=== PATIENT | male | born 1985 | race Caucasian/White ===

== ENCOUNTER 2016-12-07 02:31 | Emergency (ER) | payer OTHER ==
[2016-12-07 02:44] VITALS: TEMP 98.2
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
[2016-12-07 03:14] VITALS: RESP 18; O2SAT 98
[2016-12-07 04:05] VITALS: BP 119/82; PULSE 90
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
== END 2016-12-07 04:10 | disposition home or self-care (01) ==
LOC: H.ER 02:31
DX: R42 Dizziness and giddiness (principal); V49.49XA Driver injured in collision with other motor vehicles in traffic accident, initial encounter

== ENCOUNTER 2017-05-18 23:22 | Emergency (ER) | payer OTHER ==
[2017-05-18 23:36] VITALS: RESP 16; TEMP 97.4; O2SAT 98
[2017-05-19] MEDS ORDERED: Sodium Chloride 0.9% 1,000 ML IV STA (00:35)
--- NOTE | 2017-05-19 01:01 | ED PDOC ---
HPI: Abdomen Time Seen by Provider: 05/19/17 00:26 Chief Complaint (Nursing): Abdominal Pain Chief Complaint (Provider): Abdominal Pain History Per: Patient History/Exam Limitations: no limitations Onset/Duration Of Symptoms: Hrs (x 3) Outside of [place] travel?: No Current Symptoms Are (Timing): Still Present Additional Complaint(s): 31 year old [place] male with a past medical history of gastritis presents to the ED complaining of abdominal pain, nausea and diarrhea, onset 3 hours ago. Patient reports developing acute non bloody, loose and watery diarrhea with nausea and mild sense of dizziness. He took Omeprazole with some relief. Currently still complains of nausea. PMD: Dr. Sen Hernandez MD Past Medical History Reviewed: Historical Data, Nursing Documentation, Vital Signs Vital Signs: Last Vital Signs Temp 97.4 F L 05/18/17 23:33 Pulse 77 05/18/17 23:33 Resp 16 05/18/17 23:33 BP 126/78 05/18/17 23:33 Pulse Ox 98 05/19/17 01:06 - Medical History PMH: Gastritis, Hypothyroidism - Surgical History Surgical History: No Surg Hx - Family History Family History: States: Unknown Family Hx - Home Medications Home Medications: Ambulatory Orders Medication Instructions Recorded Docusate [Colace] 100 mg PO BID #14 cap 04/30/15 Ibuprofen [Motrin Tab] 600 mg PO Q6 #30 tab 12/07/16 Dicyclomine [Bentyl] 20 mg PO Q12 PRN #20 tab 05/19/17 Ondansetron ODT [Zofran ODT] 4 mg PO Q6 PRN #12 odt 05/19/17 - Allergies Allergies/Adverse Reactions: Allergies Allergy/AdvReac Type Severity Reaction Status Date / Time No Known Allergies Allergy Verified 05/18/17 23:33 Review of Systems ROS Statement: Except As Marked, All Systems Reviewed And Found Negative Gastrointestinal: Positive for: Nausea, Abdominal Pain, Diarrhea Physical Exam - Reviewed Nursing Documentation Reviewed: Yes Vital Signs Reviewed: Yes - Physical Exam Appears: Positive for: Non-toxic, No Acute Distress Head Exam: Positive for: ATRAUMATIC, NORMOCEPHALIC Skin: Positive for: Normal Color, Warm, Dry Eye Exam: Positive for: EOMI, Normal appearance, PERRL ENT: Positive for: Other (dry mucous membranes) Neck: Positive for: Normal, Painless ROM, Supple Cardiovascular/Chest: Positive for: Regular Rate, Rhythm. Negative for: Murmur Respiratory: Positive for: Normal Breath Sounds. Negative for: Respiratory Distress Gastrointestinal/Abdominal: Positive for: Normal Exam, Soft. Negative for: Tenderness Back: Positive for: Normal Inspection. Negative for: L CVA Tenderness, R CVA Tenderness Extremity: Positive for: Normal ROM. Negative for: Deformity Neurologic/Psych: Positive for: Alert, Oriented. Negative for: Motor/Sensory Deficits - Laboratory Results Result Diagrams: 05/19/17 01:09 05/19/17 01:09 - ECG O2 Sat by Pulse Oximetry: 98 (RA) Pulse Ox Interpretation: Normal Medical Decision Making Medical Decision Making: Time: 00:30 Impression: 31 year old male with acute gastroenteritis Initial Plan: --CMP --Lipase --Urine dip --Bentyl 20 mg PO --Normal Saline IV 1,000 mls/hr --Zofran Inj 4 mg IVP --Heplock insertion Labs revealed no clinically significant abnormalities. Patient reports improvement in symptoms. Diagnosis is gastroenteritis. Patient will be discharged home with prescriptions for Bentyl and Zofran. Scribe Attestation: Documented by Irina Dozier, acting as a scribe for Rodo Sandhu MD. Provider Scribe Attestation: All medical record entries made by the Scribe were at my direction and personally dictated by me. I have reviewed the chart and agree that the record accurately reflects my personal performance of the history, physical exam, medical decision making, and the department course for this patient. I have also personally directed, reviewed, and agree with the discharge instructions and disposition. Disposition - Clinical Impression Clinical Impression: Gastroenteritis - Patient ED Disposition Is Patient to be Admitted: No - Disposition Referrals: Sen Hernandez MD [Primary Care Provider] - Disposition: Routine/Home Disposition Time: 01:30 Condition: STABLE Prescriptions: Dicyclomine [Bentyl] 20 mg PO Q12 PRN #20 tab PRN Reason: abdominal pain/diarrhea Ondansetron ODT [Zofran ODT] 4 mg PO Q6 PRN #12 odt PRN Reason: Nausea/Vomiting Instructions: Gastroenteritis (ED) Forms: [employer] [facility] (Russian)
[2017-05-19 01:18] LABS: BASO # 0.1 K/uL (0.0-0.2); BASO % 1.4 % (0.0-2.0); EOS # 0.2 K/uL (0.0-0.7); EOS % 2.9 % (0.0-4.0); HEMOGLOBIN 16.6 g/dL (12.0-18.0); LYMPH # 1.7 K/uL (1.0-4.3); LYMPH % 31.1 % (20.0-40.0); MEAN CELL VOLUME 85.6 fl (80.0-94.0); MEAN CORPUSCULAR HGB CONC 33.9 g/dL (33.0-37.0); MONO # 0.5 K/uL (0.0-0.8); NEUT # 2.9 K/uL (1.8-7.0); NEUT % 54.6 % (50.0-75.0); NRBC % 0.2 % (0.0-0.0); RBC 5.72 Mil/uL (4.40-5.90); RED CELL DISTRIBUTION WIDTH 13.3 % (11.5-14.5); WHITE BLOOD COUNT 5.3 K/uL (4.8-10.8)
[2017-05-19 01:26] LABS: ALB/GLOB RATIO 1.1 (1.0-2.1); ALBUMIN 4.4 g/dL (3.5-5.0); ALT/SGPT 65 U/L (21-72); AST/SGOT 32 U/L (17-59); BLOOD UREA NITROGEN 15 mg/dl (9-20); CALCIUM 9.4 mg/dL (8.4-10.2); GFR AFRICAN-AMERICAN > 60; GFR NON-AFRICAN AMERICAN > 60; LIPASE 80 U/L (23-300)
[2017-05-19 02:51] VITALS: BP 128/76; PULSE 76
== END 2017-05-19 02:35 | disposition home or self-care (01) ==
LOC: H.ER 23:22
DX: K58.9 Irritable bowel syndrome, unspecified (principal)
CPT/HCPCS: 80053; 83690; 85025; 96360; 99283; J2405; J7040